=== PATIENT | male | born 1945 | race Caucasian/White ===

== ENCOUNTER 2021-01-24 08:51 | Inpatient (IN) | payer MEDICARE, OTHER ==
[~2021-01-24] VITALS: Ht 177.8 cm; Wt 86.2 kg
[~2021-01-24 08:51] MED LIST: AMLODIPINE BES2.5 MG PO; ASPIRIN EC81 M1 PO; ASPIRIN EC81 MG PO; LISINOPRIL 2.52.5 MG PO; LISINOPRIL-HCT1 EAC1 PO; METFORMIN HCL500 MG PO; METFORMIN PO; NORVASC2.5 MG PO; TENORMIN50 MG PO; ZOCOR5 MG PO
[2021-01-24 10:07] LABS: BASOPHIL 0.5 % (0-2); HCT 35.8 % (42.0-52.0); HGB 11.6 g/dl (13.2-18.0); LYMPHOCYTE 7.5 % (15-48); MCH 26.9 pg (25.0-31.0); MCHC 32.4 g/dL (32.0-36.0); MCV 82.9 fL (78.0-100.0); MONOCYTE 8.3 % (0-12); MPV 8.6 fL (6.0-9.5); NEUTROPHIL 82.1 % (41-80); NRBC 0; PLT 219 K/uL (150-400); RBC 4.32 M/uL (4.70-6.00); RDW 14.3 % (11.5-14.0); WBC 10.7 K/uL (4.0-10.5)
[2021-01-24 10:30] LABS: ALBUMIN 2.3 g/dL (3.4-5.0); BILIRUBIN - TOTAL 0.5 mg/dL (0.2-1.0); BUN/CREAT RATIO (CALC) 18.1 RATIO; CREATININE 0.72 mg/dL (0.67-1.17); GLOBULIN (CALCULATION) 4.8 g/dL; POTASSIUM 4.2 mmol/L (3.5-5.1); TOTAL PROTEIN 7.1 g/dL (6.4-8.2)
[2021-01-24] MEDS ORDERED: FLOMAX0.4 MG PO (13:35)
[2021-01-25 06:16] LABS: BASOPHIL 0.2 % (0-2); EOSINOPHIL 0 % (0-7); HGB 11.2 g/dl (13.2-18.0); LYMPHOCYTE 7.8 % (15-48); MCH 26.7 pg (25.0-31.0); MCV 83.5 fL (78.0-100.0); MONOCYTE 2.4 % (0-12); MPV 8.5 fL (6.0-9.5); NEUTROPHIL 89.2 % (41-80); NRBC 0; PLT 224 K/uL (150-400); RBC 4.19 M/uL (4.70-6.00); RDW 14.1 % (11.5-14.0); WBC 9.2 K/uL (4.0-10.5)
[2021-01-25 06:43] LABS: ALBUMIN 2.1 g/dL (3.4-5.0); BILIRUBIN - TOTAL 0.3 mg/dL (0.2-1.0); BUN/CREAT RATIO (CALC) 17.9 RATIO; C-REACTIVE PROTEIN 14.7 mg/dL (<=0.90); CREATININE 0.67 mg/dL (0.67-1.17); GLOBULIN (CALCULATION) 4.7 g/dL; POTASSIUM 4.5 mmol/L (3.5-5.1); TOTAL PROTEIN 6.8 g/dL (6.4-8.2)
[2021-01-29 07:23] LABS: BASOPHIL 0.1 % (0-2); EOSINOPHIL 0 % (0-7); HGB 12.8 g/dl (13.2-18.0); LYMPHOCYTE 8.1 % (15-48); MCH 26.1 pg (25.0-31.0); MCV 81.6 fL (78.0-100.0); MONOCYTE 5.5 % (0-12); MPV 8.7 fL (6.0-9.5); NEUTROPHIL 85.5 % (41-80); NRBC 0; PLT 217 K/uL (150-400); RDW 14.5 % (11.5-14.0); WBC 14.8 K/uL (4.0-10.5)
[2021-01-29 08:09] LABS: ALBUMIN 2.1 g/dL (3.4-5.0); BILIRUBIN - TOTAL 0.5 mg/dL (0.2-1.0); BUN/CREAT RATIO (CALC) 36.8 RATIO; C-REACTIVE PROTEIN 10.2 mg/dL (<=0.90); CREATININE 0.68 mg/dL (0.67-1.17); GLOBULIN (CALCULATION) 4.5 g/dL; POTASSIUM 4.2 mmol/L (3.5-5.1); TOTAL PROTEIN 6.6 g/dL (6.4-8.2)
[2021-01-31 13:18] LABS: BASOPHIL 0.2 % (0-2); EOSINOPHIL 0.5 % (0-7); HCT 41.3 % (42.0-52.0); HGB 13.2 g/dl (13.2-18.0); LYMPHOCYTE 6.5 % (15-48); MCH 26.6 pg (25.0-31.0); MCV 83.1 fL (78.0-100.0); MPV 8.6 fL (6.0-9.5); NEUTROPHIL 86.2 % (41-80); NRBC 0; PLT 194 K/uL (150-400); RBC 4.97 M/uL (4.70-6.00); RDW 14.7 % (11.5-14.0); WBC 18.8 K/uL (4.0-10.5)
[2021-01-31 13:51] LABS: BUN/CREAT RATIO (CALC) 29.3 RATIO; C-REACTIVE PROTEIN 3.6 mg/dL (<=0.90); CREATININE 0.75 mg/dL (0.67-1.17); POTASSIUM 4.1 mmol/L (3.5-5.1)
[2021-02-02 07:23] LABS: BASOPHIL 0.1 % (0-2); EOSINOPHIL 0.1 % (0-7); HCT 41.4 % (42.0-52.0); HGB 13.4 g/dl (13.2-18.0); MCH 26.3 pg (25.0-31.0); MCHC 32.4 g/dL (32.0-36.0); MCV 81.3 fL (78.0-100.0); MONOCYTE 6.1 % (0-12); MPV 9.3 fL (6.0-9.5); NEUTROPHIL 82.7 % (41-80); NRBC 0; PLT 181 K/uL (150-400); RBC 5.09 M/uL (4.70-6.00); RDW 14.6 % (11.5-14.0); WBC 14.4 K/uL (4.0-10.5)
[2021-02-02 07:52] LABS: ALBUMIN 2.3 g/dL (3.4-5.0); BILIRUBIN - TOTAL 0.7 mg/dL (0.2-1.0); BUN/CREAT RATIO (CALC) 32.4 RATIO; C-REACTIVE PROTEIN 2.3 mg/dL (<=0.90); CREATININE 0.71 mg/dL (0.67-1.17); GLOBULIN (CALCULATION) 4.3 g/dL; POTASSIUM 4.2 mmol/L (3.5-5.1); TOTAL PROTEIN 6.6 g/dL (6.4-8.2)
[2021-02-04 07:32] LABS: BASOPHIL 0.2 % (0-2); EOSINOPHIL 0.1 % (0-7); HCT 41.1 % (42.0-52.0); HGB 13.4 g/dl (13.2-18.0); LYMPHOCYTE 8.9 % (15-48); MCH 26.5 pg (25.0-31.0); MCHC 32.6 g/dL (32.0-36.0); MCV 81.4 fL (78.0-100.0); MONOCYTE 5.8 % (0-12); MPV 9.5 fL (6.0-9.5); NEUTROPHIL 84.1 % (41-80); NRBC 0; PLT 194 K/uL (150-400); RBC 5.05 M/uL (4.70-6.00); RDW 14.6 % (11.5-14.0); WBC 11.5 K/uL (4.0-10.5)
[2021-02-04 07:59] LABS: BUN/CREAT RATIO (CALC) 32.3 RATIO; CREATININE 0.62 mg/dL (0.67-1.17); POTASSIUM 4.1 mmol/L (3.5-5.1)
[2021-02-07 08:49] LABS: BASOPHIL 0.1 % (0-2); EOSINOPHIL 0.7 % (0-7); HCT 42.5 % (42.0-52.0); HGB 13.6 g/dl (13.2-18.0); MCH 26.5 pg (25.0-31.0); MCV 82.7 fL (78.0-100.0); MONOCYTE 6.1 % (0-12); MPV 9.6 fL (6.0-9.5); NRBC 0; PLT 297 K/uL (150-400); RBC 5.14 M/uL (4.70-6.00); RDW 14.7 % (11.5-14.0); WBC 21.9 K/uL (4.0-10.5)
[2021-02-07 09:26] LABS: ALBUMIN 2.5 g/dL (3.4-5.0); BUN/CREAT RATIO (CALC) 30.2 RATIO; C-REACTIVE PROTEIN 4.3 mg/dL (<=0.90); CREATININE 0.63 mg/dL (0.67-1.17); GLOBULIN (CALCULATION) 4.1 g/dL; POTASSIUM 4.1 mmol/L (3.5-5.1); TOTAL PROTEIN 6.6 g/dL (6.4-8.2)
[2021-02-09 07:23] LABS: BUN/CREAT RATIO (CALC) 26.8 RATIO; C-REACTIVE PROTEIN 5.1 mg/dL (<=0.90); CREATININE 0.71 mg/dL (0.67-1.17)
[2021-02-10 04:43] LABS: BASOPHIL 0.1 % (0-2); EOSINOPHIL 0.9 & (0-7); HCT 39.1 % (42.0-52.0); HGB 12.4 g/dl (13.2-18.0); LYMPHOCYTE 5.5 % (15-48); MCH 26.2 pg (25.0-31.0); MCHC 31.7 g/dL (32.0-36.0); MCV 82.5 fL (78.0-100.0); MONOCYTE 6.7 % (0-12); MPV 9.4 fL (6.0-9.5); NEUTROPHIL 86.5 % (41-80); PLT 381 K/uL (150-400); RBC 4.74 M/uL (4.70-6.00); RDW 14.7 % (11.5-14.0); WBC 17.52 K/uL (4.0-10.5)
[2021-02-10 05:10] LABS: BUN/CREAT RATIO (CALC) 28.8 RATIO; C-REACTIVE PROTEIN 15.2 mg/dL (<=0.90); CREATININE 0.59 mg/dL (0.67-1.17); POTASSIUM 4.4 mmol/L (3.5-5.1)
[2021-02-11 03:57] LABS: BASOPHIL 0.1 % (0-2); EOSINOPHIL 0.2 & (0-7); HGB 11.9 g/dl (13.2-18.0); LYMPHOCYTE 3.8 % (15-48); MCH 26.1 pg (25.0-31.0); MCHC 32.2 g/dL (32.0-36.0); MCV 81.1 fL (78.0-100.0); MONOCYTE 7.2 % (0-12); MPV 9.4 fL (6.0-9.5); NEUTROPHIL 88.2 % (41-80); PLT 388 K/uL (150-400); RBC 4.56 M/uL (4.70-6.00); RDW 14.8 % (11.5-14.0); WBC 18.79 K/uL (4.0-10.5)
[2021-02-11 04:43] LABS: BUN 18 mg/dL (7-18); BUN/CREAT RATIO (CALC) 28.1 RATIO; C-REACTIVE PROTEIN >18.00 mg/dL (<=0.90); CHLORIDE 99 mmol/L (98-107); CO2 (BICARBONATE) 28 mmol/L (21-32); CREATININE 0.64 mg/dL (0.67-1.17); GLUCOSE 157 mg/dL (74-106); POTASSIUM 3.6 mmol/L (3.5-5.1)
[2021-02-12 06:50] LABS: BASOPHIL 0.2 % (0-2); EOSINOPHIL 0.2 % (0-7); HCT 40.1 % (42.0-52.0); HGB 12.9 g/dl (13.2-18.0); LYMPHOCYTE 3.5 % (15-48); MCH 26.6 pg (25.0-31.0); MCHC 32.2 g/dL (32.0-36.0); MCV 82.7 fL (78.0-100.0); MONOCYTE 6.4 % (0-12); MPV 9.2 fL (6.0-9.5); NEUTROPHIL 88.9 % (41-80); NRBC 0; PLT 432 K/uL (150-400); RBC 4.85 M/uL (4.70-6.00); RDW 15.2 % (11.5-14.0)
[2021-02-12 07:22] LABS: BUN 24 mg/dL (7-18); BUN/CREAT RATIO (CALC) 38.7 RATIO; C-REACTIVE PROTEIN >18.00 mg/dL (<=0.90); CHLORIDE 100 mmol/L (98-107); CO2 (BICARBONATE) 30 mmol/L (21-32); CREATININE 0.62 mg/dL (0.67-1.17); GLUCOSE 192 mg/dL (74-106); MAGNESIUM 1.8 mg/dL (1.8-2.4)
[2021-02-13 05:38] LABS: BASOPHIL 0.1 % (0-2); EOSINOPHIL 0 % (0-7); HCT 35.3 % (42.0-52.0); HGB 10.7 g/dl (13.2-18.0); LYMPHOCYTE 2.1 % (15-48); MCH 26.4 pg (25.0-31.0); MCHC 30.3 g/dL (32.0-36.0); MONOCYTE 3.3 % (0-12); MPV 9.6 fL (6.0-9.5); NEUTROPHIL 93.8 % (41-80); NRBC 0; PLT 257 K/uL (150-400); RBC 4.05 M/uL (4.70-6.00); RDW 14.7 % (11.5-14.0); WBC 16.9 K/uL (4.0-10.5)
[2021-02-13 05:49] LABS: MCV 87.2 fL (78.0-100.0)
[2021-02-13 08:57] LABS: ALBUMIN 1.1 g/dL (3.4-5.0); BILIRUBIN - TOTAL 1.1 mg/dL (0.2-1.0); CREATININE 1.1 mg/dL (0.67-1.17); GLOBULIN (CALCULATION) 3.1 g/dL; POTASSIUM 4.3 mmol/L (3.5-5.1); TOTAL PROTEIN 4.2 g/dL (6.4-8.2)
[2021-02-13 08:58] LABS: MAGNESIUM 1.4 mg/dL (1.8-2.4)
[2021-02-14 04:51] LABS: BASOPHIL 0.2 % (0-2); EOSINOPHIL 0 % (0-7); HCT 30.9 % (42.0-52.0); HGB 9.6 g/dl (13.2-18.0); LYMPHOCYTE 2.2 % (15-48); MCH 26.7 pg (25.0-31.0); MCHC 31.1 g/dL (32.0-36.0); MCV 85.8 fL (78.0-100.0); MONOCYTE 5.2 % (0-12); MPV 10.1 fL (6.0-9.5); NEUTROPHIL 91.4 % (41-80); NRBC 0.1; PLT 164 K/uL (150-400); RDW 14.8 % (11.5-14.0); WBC 16.2 K/uL (4.0-10.5)
[2021-02-14 05:04] LABS: INR 3.07 (0.9-1.2); PROTHROMBIN TIME 30.7 SECONDS (11.8-13.4)
[2021-02-14 05:25] LABS: ALBUMIN 1.7 g/dL (3.4-5.0); ALKALINE PHOSHATASE 154 U/L (46-116); ALT >3500 U/L (16-63); AST 970 U/L (15-37); BUN 38 mg/dL (7-18); BUN/CREAT RATIO (CALC) 19.5 RATIO; CHLORIDE 98 mmol/L (98-107); CO2 (BICARBONATE) 20 mmol/L (21-32); CREATININE 1.95 mg/dL (0.67-1.17); GLOBULIN (CALCULATION) 2.7 g/dL; LIPASE >2250 U/L (73-393); MAGNESIUM 1.5 mg/dL (1.8-2.4); POTASSIUM 4.3 mmol/L (3.5-5.1); TOTAL PROTEIN 4.4 g/dL (6.4-8.2)
[2021-02-14 05:36] LABS: GLUCOSE 537 mg/dL (74-106)
== END 2021-02-14 10:15 | disposition expired | DRG 208 ==
LOC: FER 08:51 → FTCU 11:06 → FMS 11:06 → FTCU 02-08 14:24 → FICU 02-12 10:21
PROVIDERS: Allergy & Immunology Allergy; Internal Medicine; ADMIT Internal Medicine
PROC: XW033E5 Introduction of Remdesivir Anti-infective into Peripheral Vein, Percutaneous Approach, New Technology Group 5 (ICD-10-PCS; principal; 2021-01-24)
PROC: 8E0ZXY6 Isolation (ICD-10-PCS; 2021-01-24)
PROC: XW0DXM6 Introduction of Baricitinib into Mouth and Pharynx, External Approach, New Technology Group 6 (ICD-10-PCS; 2021-02-01)
PROC: 5A1945Z Respiratory Ventilation, 24-96 Consecutive Hours (ICD-10-PCS; 2021-02-12)
PROC: 0BH17EZ Insertion of Endotracheal Airway into Trachea, Via Natural or Artificial Opening (ICD-10-PCS; 2021-02-12)
PROC: 3E033XZ Introduction of Vasopressor into Peripheral Vein, Percutaneous Approach (ICD-10-PCS; 2021-02-12)
DX: U07.1 COVID-19 (principal); J96.01 Acute respiratory failure with hypoxia; J12.82 Pneumonia due to coronavirus disease 2019; I21.A1 Myocardial infarction type 2; R65.21 Severe sepsis with septic shock; A41.9 Sepsis, unspecified organism; B37.1 Pulmonary candidiasis; J15.9 Unspecified bacterial pneumonia; K72.00 Acute and subacute hepatic failure without coma; J81.0 Acute pulmonary edema; Z16.24 Resistance to multiple antibiotics; R18.8 Other ascites; N17.9 Acute kidney failure, unspecified; E87.2 Acidosis; Z66 Do not resuscitate; Z51.5 Encounter for palliative care; R57.1 Hypovolemic shock; J43.9 Emphysema, unspecified; I10 Essential (primary) hypertension; E11.65 Type 2 diabetes mellitus with hyperglycemia; N40.0 Benign prostatic hyperplasia without lower urinary tract symptoms; I34.0 Nonrheumatic mitral (valve) insufficiency; I27.20 Pulmonary hypertension, unspecified; Z78.1 Physical restraint status; Z98.890 Other specified postprocedural states; Z87.891 Personal history of nicotine dependence; Z79.84 Long term (current) use of oral hypoglycemic drugs; Z79.899 Other long term (current) drug therapy; Y95 Nosocomial condition
CPT/HCPCS: 31500; 36415; 36600; 71045; 71046; 71275; 74018; 80048; 80053; 80202; 82728; 82803; 83036; 83605; 83690; 83735; 83880; 84145; 84484; 85025; 85610; 86140; 87070; 87205; 93005; 94002; 94640; 94660; 97162; 97166; 97530; 97530-GP; 97535; C9399; J0171; J0330; J0637; J0692; J0696; J1100; J1650; J1720; J1940; J2185; J2250; J2370; J3010; J3370; J3475; J7030; J7040; J7050; J7060; J7070; J7120; J8540; P9046; Q9967; U0002